=== PATIENT | female | born 1965 | race Caucasian/White ===

== ENCOUNTER 2017-04-10 13:33 | Outpatient (CLI) | payer OTHER ==
[~2017-04-10] VITALS: Ht 177.8 cm; Wt 81.6 kg
[~2017-04-10 13:33] MED LIST: CETI10TA PO; OMEP20CA3 PO
[2017-04-10] MEDS ORDERED: NS 1,000 ML IV SCH (13:45)
[2017-04-10] MEDS ORDERED: PROPOFOL 200 MG/20 ML VIAL As Ordered ONE (14:45)
[2017-04-10] MEDS ORDERED: LIDOCAINE 2% INJ 100 MG/5 ML SDV (FOR ANES.) As Ordered ONE (14:45)
--- NOTE | 2017-04-10 15:01 | ROOR ---
Patient Name: Flora Zapata Procedure Date: 04/10/2017 2:49 PM Date of : 1965 Age: 52 Room: [facility] Gender: Female Note Status: Finalized Procedure: Upper GI endoscopy Indications: Heartburn Providers: Vicente Hickman MD Referring MD: Caroel Rm MD Requesting Provider: Medicines: Monitored Anesthesia Care Complications: No immediate complications. Procedure: Pre-Anesthesia Assessment: - The heart rate, respiratory rate, oxygen saturations, blood pressure, adequacy of pulmonary ventilation, and response to care were monitored throughout the procedure. The Endoscope was introduced through the mouth, and advanced to the second part of duodenum. The upper GI endoscopy was accomplished without difficulty. The patient tolerated the procedure well. Findings: The Z-line was regular and was found 44 cm from the incisors. No other significant abnormalities were identified in a careful examination of the stomach. The exam of the duodenum was otherwise normal. Impression: - Z-line regular, 44 cm from the incisors. - No specimens collected. - The examination was otherwise normal. Recommendation: - Patient has a contact number available for emergencies. The signs and symptoms of potential delayed complications were discussed with the patient. Return to normal activities tomorrow. Written discharge instructions were provided to the patient. - High fiber diet. - Discharge patient to home. - Follow an antireflux regimen. - Continue present medications. - Return to referring physician. - The findings and recommendations were discussed with the patient's family. Vicente Hickman MD Vicente Hickman MD 04/10/2017 3:01:32 PM This report has been signed electronically. Number of Addenda: 0 Note Initiated On: 04/10/2017 2:49 PM Estimated Blood Loss: Estimated blood loss: none.
--- NOTE | 2017-04-10 15:17 | ROOR ---
Patient Name: Flora Zapata Procedure Date: 04/10/2017 2:50 PM Date of : 1965 Age: 52 Room: [facility] Gender: Female Note Status: Finalized Procedure: Total Colonoscopy to Cecum Indications: Screening for colorectal malignant neoplasm Providers: Vicente Hickman MD Referring MD: Carole Rm MD Requesting Provider: Medicines: Monitored Anesthesia Care Complications: No immediate complications. Procedure: Pre-Anesthesia Assessment: - The heart rate, respiratory rate, oxygen saturations, blood pressure, adequacy of pulmonary ventilation, and response to care were monitored throughout the procedure. The Colonoscope was introduced through the anus and advanced to the cecum, identified by appendiceal orifice and ileocecal valve. The colonoscopy was performed without difficulty. The patient tolerated the procedure well. The quality of the bowel preparation was good. Findings: The perianal and digital rectal examinations were normal. Non-bleeding internal hemorrhoids were found during retroflexion. The hemorrhoids were small and Grade I (internal hemorrhoids that do not prolapse). No other significant abnormalities were identified in a careful examination of the remainder of the colon. The exam was otherwise without abnormality on direct and retroflexion views. Impression: - Non-bleeding internal hemorrhoids. - The examination was otherwise normal on direct and retroflexion views. - No specimens collected. - The exam was otherwise normal to the cecum. Recommendation: - Patient has a contact number available for emergencies. The signs and symptoms of potential delayed complications were discussed with the patient. Return to normal activities tomorrow. Written discharge instructions were provided to the patient. - High fiber diet. - Discharge patient to home. - Continue present medications. - Repeat colonoscopy in 10 years for screening purposes. - Return to referring physician. - The findings and recommendations were discussed with the patient's family. Vicente Hickman MD Vicente Hickman MD 04/10/2017 3:17:03 PM This report has been signed electronically. Number of Addenda: 0 Note Initiated On: 04/10/2017 2:50 PM Estimated Blood Loss: Estimated blood loss: none.
[2017-04-10 15:35] VITALS: BP 114/65
== END 2017-04-10 16:02 | disposition home or self-care (01) ==
LOC: M OPP 13:33
PROVIDERS: ATTEND Internal Medicine Gastroenterology
DX: Z12.11 Encounter for screening for malignant neoplasm of colon (principal); K64.0 First degree hemorrhoids; R12 Heartburn; K21.9 Gastro-esophageal reflux disease without esophagitis; Z87.39 Personal history of other diseases of the musculoskeletal system and connective tissue; Z86.79 Personal history of other diseases of the circulatory system; M54.9 Dorsalgia, unspecified; Z78.0 Asymptomatic menopausal state; Z98.1 Arthrodesis status; Z79.899 Other long term (current) drug therapy; Z80.41 Family history of malignant neoplasm of ovary

== ENCOUNTER → 2017-12-29 | Outpatient (REF) | payer OTHER ==
[2017-12-29 14:13] LABS: CHOLESTEROL LEVEL 213 MG/DL (<200); CHOLESTEROL RISK RATIO 3.672 (<5); GLUCOSE, FASTING 83 MG/DL (70-100); HDL CHOLESTEROL 58 MG/DL (>40); NON-HDL-C 155 MG/DL; TRIGLYCERIDES LEVEL 65 MG/DL (<150)
== END ==
LOC: M SFHCADAM 09:07
DX: Z13.1 Encounter for screening for diabetes mellitus (principal); E78.5 Hyperlipidemia, unspecified; Z11.59 Encounter for screening for other viral diseases

== ENCOUNTER → 2018-10-23 | Outpatient (REF) | payer OTHER ==
[2018-10-23 18:18] LABS: PERCENT SATURATION 39.3 % (13.2-45.0); THYROID STIMULATING HORMONE 1.94 uIU/ML (0.358-3.740)
== END ==
LOC: M SFHCPLAZ 15:30
PROVIDERS: ATTEND Family Medicine
DX: L65.9 Nonscarring hair loss, unspecified (principal)

== ENCOUNTER → 2019-01-28 | Outpatient (CLI) | payer OTHER ==
--- NOTE | 2019-01-29 06:31 | REP ---
Clinical: Tender mass. Technique: Real time ellison scale and color evaluation using linear high frequency transducer. Findings: Directed ultrasound examination of the right axilla at the site of maximal tenderness and palpable mass demonstrates normal subcutaneous tissues. No fluid collection, lymph node or mass lesion is identified in proximity to the area in question. Impression: No obvious abnormality by ultrasound.
== END ==
LOC: M WHC 10:00
PROVIDERS: ATTEND Family Medicine
DX: M79.89 Other specified soft tissue disorders (principal)

== ENCOUNTER → 2019-02-13 | Outpatient (CLI) | payer OTHER ==
[2019-02-13 13:49] LABS: ALBUMIN 3.3 GM/DL (3.2-5.2); ALT/SGPT 38 U/L (12-78); BILIRUBIN,TOTAL 0.4 MG/DL (0.2-1.0); BLOOD UREA NITROGEN 12 MG/DL (7-18); CALCIUM LEVEL 8.8 MG/DL (8.5-10.1); CARBON DIOXIDE LEVEL 28 MEQ/L (21-32); CHLORIDE LEVEL 111 MEQ/L (98-107); CHOLESTEROL LEVEL 193 MG/DL (<200); CREATININE FOR GFR 0.55 MG/DL (0.55-1.30); GLOMERULAR FILTRATION RATE > 60.0 (>51); GLUCOSE, FASTING 85 MG/DL (70-100); HDL CHOLESTEROL 50 MG/DL (>40); LDL CHOLESTEROL 124 MG/DL (<100); NON-HDL-C 143 MG/DL; SODIUM LEVEL 145 MEQ/L (136-145); TOTAL PROTEIN 6.2 GM/DL (6.4-8.2); TRIGLYCERIDES LEVEL 93 MG/DL (<150)
== END ==
LOC: M WUC 09:12
PROVIDERS: ATTEND Family Medicine
DX: Z13.220 Encounter for screening for lipoid disorders (principal); Z13.1 Encounter for screening for diabetes mellitus

== ENCOUNTER → 2020-05-21 | Outpatient (CLI) | payer BC, OTHER ==
[~2020-05-21] MED LIST changes: +OMEP1CAP73 PO; -OMEP20CA3 PO
[2020-05-21 11:09] LABS: HEMATOCRIT 37.1 % (36.0-47.0); HEMOGLOBIN 12.1 g/dl (12.0-15.5); MEAN CORPUSCULAR HEMOGLOBIN 29.2 pg (27.0-33.0); MEAN CORPUSCULAR HGB CONC 32.6 g/dl (32.0-36.5); MEAN CORPUSCULAR VOLUME 89.4 fl (80.0-96.0); PLATELET COUNT, AUTOMATED 237 10^3/uL (150-450); RED BLOOD COUNT 4.15 10^6/uL (4.00-5.40); WHITE BLOOD COUNT 3.6 10^3/uL (4.0-10.0)
[2020-05-21 13:18] LABS: BLOOD UREA NITROGEN 17 MG/DL (7-18); CALCIUM LEVEL 9.6 MG/DL (8.5-10.1); CARBON DIOXIDE LEVEL 30 MEQ/L (21-32); CHLORIDE LEVEL 109 MEQ/L (98-107); CREATININE FOR GFR 0.49 MG/DL (0.55-1.30); GLOMERULAR FILTRATION RATE > 60.0 (>51); GLUCOSE, FASTING 92 MG/DL (70-100); POTASSIUM SERUM 4.2 MEQ/L (3.5-5.1); SODIUM LEVEL 143 MEQ/L (136-145); THYROID STIMULATING HORMONE < 0.005 uIU/ML (0.358-3.740)
--- NOTE | 2020-05-28 13:08 | REPPI ---
CHEST X-RAY CLINICAL: Shortness of breath. COMPARISON: 10/27/2001. FINDINGS: There is blunting of the left diaphragmatic surface and costophrenic angle, which represents a relatively new finding and suggests the possibility of a subtle effusion and fibroatelectatic changes. The right hemithorax is clear. The cardiac silhouette and mediastinum are normal. Skeletal structures are intact/stable. Holguin rods through the lower thoracic and visualized lumbar spine again noted. IMPRESSION: Subtle increased blunting to the left diaphragmatic surface and costophrenic angle raising the possibility of acute on chronic changes including small new pleural reaction and atelectasis. Correlation is recommended. MTDD
== END ==
LOC: M PLAIMG 08:35
PROVIDERS: ATTEND Family Medicine
DX: R06.09 Other forms of dyspnea (principal); R00.2 Palpitations

== ENCOUNTER → 2020-05-26 | Outpatient (CLI) | payer BC, OTHER ==
--- NOTE | 2020-05-29 15:03 | ECHO ---
DATE OF PROCEDURE: 05/26/2020 Height: 177 cm Weight: 78 kg REFERRING PHYSICIAN: Sonia Sheldon MD INDICATION: Dyspnea. MEASUREMENTS: IVS 0.8 LV 3.4 LVPW 0.8 LA 2.5 Aorta 2.6 IVC 1.2 Mitral E wave velocity 78, A wave 93. E prime septal 7.9 E prime lateral 11.9 FINDINGS: The study is of good technical quality. The patient is in sinus rhythm. Left ventricle is normal size as is normal systolic function. Overall estimated left ventricular ejection fraction (LVEF) 65 to 70%. No segmental wall motion abnormalities are appreciated. Right ventricle is also normal size and systolic function. Both atria appear normal. Aortic valve is tricuspid and has normal mobility. 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 Tricuspid and pulmonic valves appear normal. No pericardial effusion is noted. Inferior vena cava is normal size and appropriately collapses with inspiration indicative of normal central venous pressure. Aortic root and aortic arch appear normal. Abdominal aorta was not well seen. Doppler interrogation reveals competent aortic valve. There is trace mitral insufficiency and trace tricuspid insufficiency. Unfortunately, quality of TR jet was not sufficient to estimate pulmonary artery pressure. Mitral inflow pattern and tissue Doppler imaging of mitral annulus reveal grade 1 diastolic dysfunction. CONCLUSIONS: 1. Study is of good technical quality. The patient is in sinus rhythm. 2. Normal LV size with normal LV systolic function and grade 1 diastolic dysfunction. 3. Normal LV size and systolic function. 4. No significant valvular disease. 5. Normal central venous pressure. 6. Unable to estimate pulmonary artery pressure, but no signs to suggest pulmonary hypertension. COMMENTS: No obvious explantation for dyspnea. MTDD
== END ==
LOC: M CARPUL 08:08
PROVIDERS: ATTEND Family Medicine
DX: R06.09 Other forms of dyspnea (principal); I34.1 Nonrheumatic mitral (valve) prolapse

== ENCOUNTER → 2020-05-27 | Outpatient (REF) | payer OTHER ==
[2020-05-27 14:33] LABS: FREE T4 4.13 NG/DL (0.76-1.46); THYROID STIMULATING HORMONE < 0.005 uIU/ML (0.358-3.740)
[2020-05-27 14:50] LABS: TOTAL T3 400.5 NG/DL (60.0-181.0)
== END ==
LOC: M LABDRWAD 12:43
PROVIDERS: ATTEND Family Medicine
DX: E05.90 Thyrotoxicosis, unspecified without thyrotoxic crisis or storm (principal)

== ENCOUNTER → 2020-06-22 | Outpatient (CLI) | payer BC, OTHER ==
--- NOTE | 2020-06-23 11:08 | REP ---
INDICATION: THYROIDTOXICOSIS WITH DIFFUSE GOITER. COMPARISON: None. TECHNIQUE: 438 uCi of I 123 sodium iodine is suggested and 2 and 24 hour uptake values are acquired. Functional thyroid images are acquired. FINDINGS: Patient's thyroid uptake value at 2 hours is high, 55.35% (normal range 6-12%). The 24 uptake is similarly quite high, 72.54% (25-35%). Functional images demonstrate homogeneous uptake in symmetric sized mildly enlarged thyroid lobes bilaterally. No cold or warm lesion. IMPRESSION: Rather increased uptake, 72.54% at 24 hours, in combination with homogeneous function. Findings are consistent with Graves disease. <Electronically signed by Napoleon Carter > 06/23/20 [id number]
== END ==
LOC: M RAD 10:06
PROVIDERS: ATTEND Internal Medicine Endocrinology, Diabetes & Metabolism
DX: E05.00 Thyrotoxicosis with diffuse goiter without thyrotoxic crisis or storm (principal)
CPT/HCPCS: 78012; A9516

== ENCOUNTER → 2020-07-06 | Outpatient (REF) | payer BC, OTHER ==
[2020-07-06 13:44] LABS: HCG, SERUM QUALITATIVE NEGATIVE (NEGATIVE)
== END ==
LOC: M LABDRWAD 12:24
PROVIDERS: ATTEND Nurse Practitioner Family
DX: E05.00 Thyrotoxicosis with diffuse goiter without thyrotoxic crisis or storm (principal)

== ENCOUNTER → 2020-07-07 | Outpatient (CLI) | payer BC, OTHER | LOC: M RAD 13:25 | PROVIDERS: ATTEND Internal Medicine Endocrinology, Diabetes & Metabolism | DX: E05.00 Thyrotoxicosis with diffuse goiter without thyrotoxic crisis or storm (principal) ==

== ENCOUNTER → 2020-08-24 | Outpatient (REF) | payer OTHER, BC ==
[2020-08-24 13:21] LABS: FREE T4 1.34 NG/DL (0.76-1.46); THYROID STIMULATING HORMONE < 0.005 uIU/ML (0.358-3.740)
== END ==
LOC: M LABDRWAD 12:24
PROVIDERS: ATTEND Internal Medicine Endocrinology, Diabetes & Metabolism
DX: E05.00 Thyrotoxicosis with diffuse goiter without thyrotoxic crisis or storm (principal)

== ENCOUNTER → 2021-02-02 | Outpatient (REF) | payer OTHER, BC ==
[2021-02-02 14:57] LABS: FREE T4 1.21 NG/DL (0.76-1.46); THYROID STIMULATING HORMONE 0.673 uIU/ML (0.358-3.740)
== END ==
LOC: M LABDRWAD 13:27
PROVIDERS: ATTEND Nurse Practitioner Family
DX: E89.0 Postprocedural hypothyroidism (principal)

== ENCOUNTER → 2021-04-06 | Outpatient (REF) | payer OTHER, BC ==
[2021-04-06 14:07] LABS: ALBUMIN 3.7 GM/DL (3.2-5.2); ALT/SGPT 38 U/L (12-78); BILIRUBIN,TOTAL 0.4 MG/DL (0.2-1.0); BLOOD UREA NITROGEN 16 MG/DL (7-18); CALCIUM LEVEL 9.2 MG/DL (8.5-10.1); CARBON DIOXIDE LEVEL 32 MEQ/L (21-32); CHLORIDE LEVEL 108 MEQ/L (98-107); CHOLESTEROL LEVEL 222 MG/DL (<200); CHOLESTEROL RISK RATIO 3.171 (<5); CREATININE FOR GFR 0.64 MG/DL (0.55-1.30); GLOMERULAR FILTRATION RATE > 60.0 (>51); GLUCOSE, FASTING 86 MG/DL (70-100); HDL CHOLESTEROL 70 MG/DL (>40); LDL CHOLESTEROL 140 MG/DL (<100); NON-HDL-C 152 MG/DL; POTASSIUM SERUM 4.2 MEQ/L (3.5-5.1); SODIUM LEVEL 143 MEQ/L (136-145); TOTAL PROTEIN 6.7 GM/DL (6.4-8.2); TRIGLYCERIDES LEVEL 61 MG/DL (<150)
== END ==
LOC: M LABDRWAD 12:43
PROVIDERS: ATTEND Family Medicine
DX: Z13.220 Encounter for screening for lipoid disorders (principal); Z13.1 Encounter for screening for diabetes mellitus

== ENCOUNTER → 2021-06-10 | Outpatient (REF) | payer OTHER, BC ==
[2021-06-10 14:05] LABS: FREE T4 1.18 NG/DL (0.76-1.46); THYROID STIMULATING HORMONE 1.68 uIU/ML (0.358-3.740)
== END ==
LOC: M LABDRWAD 12:43
PROVIDERS: ATTEND Nurse Practitioner Family
DX: E89.0 Postprocedural hypothyroidism (principal)

== ENCOUNTER → 2022-03-15 | Outpatient (CLI) | payer BC, OTHER | LOC: M WUC 13:51 | PROVIDERS: ATTEND Physician Assistant | DX: M79.631 Pain in right forearm (principal) ==

== ENCOUNTER → 2022-03-16 | Outpatient (REF) | payer OTHER ==
[2022-03-16 13:25] LABS: BASO % 0.7 % (0.0-1.0); EOS # 0.2 10^3/uL (0.0-0.5); EOS % 5.6 % (0.0-3.0); HEMATOCRIT 39.1 % (36.0-47.0); LYMPH # 1.6 10^3/uL (1.5-5.0); LYMPH % 36.4 % (24.0-44.0); MEAN CORPUSCULAR HGB CONC 33.2 g/dl (32.0-36.5); MEAN CORPUSCULAR VOLUME 93.1 fl (80.0-96.0); MONO # 0.3 10^3/uL (0.0-0.8); NEUTROPHILS # 2.1 10^3/uL (1.5-8.5); NEUTROPHILS % 50.3 % (36.0-66.0); PLATELET COUNT, AUTOMATED 207 10^3/uL (150-450); WHITE BLOOD COUNT 4.3 10^3/uL (4.0-10.0)
[2022-03-16 14:37] LABS: ALBUMIN 3.5 GM/DL (3.2-5.2); ALT/SGPT 17 U/L (12-78); BILIRUBIN,TOTAL 0.5 MG/DL (0.2-1.0); BLOOD UREA NITROGEN 14 MG/DL (7-18); CALCIUM LEVEL 9.1 MG/DL (8.5-10.1); CARBON DIOXIDE LEVEL 32 MEQ/L (21-32); CHLORIDE LEVEL 110 MEQ/L (98-107); CHOLESTEROL LEVEL 205 MG/DL (<200); CHOLESTEROL RISK RATIO 3.942 (<5); CREATININE FOR GFR 0.69 MG/DL (0.55-1.30); GLOMERULAR FILTRATION RATE > 60.0 (>51); GLUCOSE, FASTING 93 MG/DL (70-100); HDL CHOLESTEROL 52 MG/DL (>40); LDL CHOLESTEROL 135 MG/DL (<100); NON-HDL-C 153 MG/DL; POTASSIUM SERUM 3.7 MEQ/L (3.5-5.1); SODIUM LEVEL 143 MEQ/L (136-145); TOTAL PROTEIN 6.5 GM/DL (6.4-8.2); TRIGLYCERIDES LEVEL 90 MG/DL (<150)
== END ==
LOC: M SFHCADAM 08:00
PROVIDERS: ATTEND Physician Assistant
DX: E78.5 Hyperlipidemia, unspecified (principal)